=== PATIENT | male | born 1985 | race Caucasian/White ===

== ENCOUNTER 2017-02-18 20:21 | Emergency (ER) | payer BC ==
[2017-02-18 20:26] VITALS: TEMP 98.1; BMI 32.5
--- NOTE | 2017-02-18 20:27 | PDOC ---
Rapid Medical Evaluation Chief Complaint: Pain Time Seen by Provider: 02/18/17 20:25 Medical Evaluation: 02/18/17 20:25 I have performed a brief in-person evaluation of this patient. The patient presents with a chief complaint of: Epigastric Abdominal Pain, Nausea. Pertinent physical exam findings: Epigastric tenderness. I have ordered the following: urinalysis, cbc, cmp, amylase, lipase. EKG. The patient will proceed to the ED for further evaluation. Patient sent to ER from Urgent Care by Ariana CARABALLO.
[2017-02-18 20:53] LABS: BASO % 0.5 % (0-2.0); EOS # 0.1 # (0-4.5); EOS % 0.7 % (0-4.5); LYMPH # 1.2 (8-40); MCH 29.1 pg (25.7-33.7); MCHC 33.7 g/dl (32.0-35.9); MEAN CELL VOLUME 86.3 fl (80-96); MEAN PLT VOLUME 7.5 fl (7.5-11.1); MONO # 0.4 # (3.8-10.2); NEUT # 7.3 # (42.8-82.8); PLATELET COUNT 337 K/MM3 (134-434); RDW 13.7 % (11.9-15.9); WHITE BLOOD COUNT 9.1 K/mm3 (4.0-10.0)
[2017-02-18] MEDS ORDERED: FAMOTIDINE IV 20 MG/12 ML VIAL IVPUSH ONE (21:20)
[2017-02-18] MEDS ORDERED: SODIUM CHLORIDE 1,000 ML IV STA (21:20)
[2017-02-18] MEDS ORDERED: FAMOTIDINE 20 MG/50 ML IVPB 20 MG/50 ML MG IVPB ONE (21:25)
[2017-02-18 21:46] LABS: URINE APPEARANCE CLEAR; URINE BILIRUBIN NEGATIVE (NEGATIVE); URINE BLOOD NEGATIVE (NEGATIVE); URINE COLOR YELLOW; URINE GLUCOSE (UA) NEGATIVE (NEGATIVE); URINE KETONE NEGATIVE (NEGATIVE); URINE LEUK ESTERASE NEGATIVE (NEGATIVE); URINE NITRITE NEGATIVE (NEGATIVE); URINE PROTEIN NEGATIVE (NEGATIVE); URINE UROBILINOGEN NEGATIVE mg/dL (0.2-1.0)
[2017-02-18 21:52] LABS: ALBUMIN 4.3 g/dl (3.4-5.0); AMYLASE 56 U/L (25-115); ANION GAP 7 (8-16); CALCIUM 8.8 mg/dL (8.5-10.1); CO2 28 mmol/L (21-32); CREATININE 1.1 mg/dL (0.7-1.3); GLUCOSE,RANDOM 119 mg/dL (74-106); SGOT/AST 10 U/L (15-37); SGPT/ALT 37 U/L (12-78)
[2017-02-18 21:54] LABS: ALK PHOS 78 U/L (45-117); BILIRUBIN,TOTAL 0.4 mg/dL (0.2-1.0); TOT PROT 7.7 g/dl (6.4-8.2)
[2017-02-18 21:57] LABS: CPK 259 IU/L (39-308); TROPONIN I < 0.02 ng/ml (0.00-0.05)
[2017-02-18 23:28] LABS: URINE LEUK ESTERASE Negative (NEGATIVE)
--- NOTE | 2017-02-19 00:34 | PDOC ---
History of Present Illness - General History Source: Patient Exam Limitations: No Limitations - History of Present Illness Initial Comments: 02/19/17 00:34 Patient is a 31 year old male with no significant past medical history who presents to the ED with complaints of epigastric pain that began 2 days ago. Patient reports waking up 3 days ago with sudden epigastric pain that began suddenly with no signs of subsiding. Patient states abdominal pain is a constant burning pain that began to radiate to the back yesterday afternoon while at home. He reports experiencing x8 episodes of diarrhea yesterday afternoon but denies any episodes since this morning. Patient denies taking any medication for abdominal pain but reports taking imodium for diarrhea this morning. Patient states he has not seen a Dr. in over 15 years. Denies nausea, vomiting. Denies fevers, chills. Denies SOB, Chest pain. Denies numbness, tingles. Denies contact with sick individuals, out of state travel. Denies any other symptoms. Allergies: None Social history: No smoking. Social drinker. No illicit drugs. Surgical history PMD: None <Javad Rahman - Last Filed: 02/19/17 00:34> <Bartolo Peters - Last Filed: 02/19/17 01:54> - General Chief Complaint: Pain, Acute Stated Complaint: STOMACH PAIN Time Seen by Provider: 02/18/17 21:21 Past History <Javad Rahman - Last Filed: 02/19/17 00:34> - Past Medical History COPD: No Other medical history: PATIENT DENIES MEDICAL HX - Suicide/Smoking/Psychosocial Hx Smoking History: Never smoked Hx Alcohol Use: Yes (WEEKENDS) Drug/Substance Use Hx: No <Bartolo Peters - Last Filed: 02/19/17 01:54> - Past Medical History Allergies/Adverse Reactions: Allergies Allergy/AdvReac Type Severity Reaction Status Date / Time No Known Allergies Allergy Verified 02/18/17 20:25 Home Medications: Ambulatory Orders Dicyclomine HCl [Bentyl -] 20 mg PO Q6H #28 tablet 02/19/17 Famotidine [Pepcid -] 20 mg PO BID #14 tablet 02/19/17 Ondansetron [Zofran *Odt*] 8 mg SL TID #21 od.tablet 02/19/17 Review of Systems - Review of Systems Able to Perform ROS?: Yes Comments:: 02/19/17 00:34 GENERAL/CONSTITUTIONAL: No fever or chills. No weakness. HEAD, EYES, EARS, NOSE AND THROAT: No change in vision. No ear pain or discharge. No sore throat. CARDIOVASCULAR: No chest pain or shortness of breath. RESPIRATORY: No cough, wheezing, or hemoptysis. GASTROINTESTINAL: +Epigastric pain. +diarrhea. No nausea, vomiting, constipation. GENITOURINARY: No dysuria, frequency, or change in urination. MUSCULOSKELETAL: No joint or muscle swelling or pain. No neck or back pain. SKIN: No rash NEUROLOGIC: No headache, vertigo, loss of consciousness, or change in strength/ sensation. ENDOCRINE: No increased thirst. No abnormal weight change. HEMATOLOGIC/LYMPHATIC: No anemia, easy bleeding, or history of blood clots. ALLERGIC/IMMUNOLOGIC: No hives or skin allergy. All Other Systems: Reviewed and Negative <aJvad Rahman - Last Filed: 02/19/17 00:34> *Physical Exam - Vital Signs Last Vital Signs Temp Pulse Resp BP Pulse Ox 98.1 F 79 16 147/92 98 02/18/17 20:23 02/18/17 20:23 02/18/17 20:23 02/18/17 20:23 02/18/17 20:23 - Physical Exam Comments: 02/19/17 00:34 GENERAL: Awake, alert, and fully oriented, in no acute distress HEAD: No signs of trauma EYES: PERRLA, EOMI, sclera anicteric, conjunctiva clear ENT: Auricles normal inspection, hearing grossly normal, nares patent, oropharynx clear without exudates. Moist mucosa NECK: Normal ROM, supple, no lymphadenopathy, JVD, or masses LUNGS: Breath sounds equal, clear to auscultation bilaterally. No wheezes, and no crackles HEART: Regular rate and rhythm, normal S1 and S2, no murmurs, rubs or gallops ABDOMEN: +Epigastric tenderness. Soft, normoactive bowel sounds. No guarding, no rebound. No masses EXTREMITIES: Normal range of motion, no edema. No clubbing or cyanosis. No cords, erythema, or tenderness NEUROLOGICAL: Cranial nerves II through XII grossly intact. Normal speech, normal gait SKIN: Warm, Dry, normal turgor, no rashes or lesions noted. <Javad Rahman - Last Filed: 02/19/17 00:34> - Vital Signs Last Vital Signs Temp Pulse Resp BP Pulse Ox 98.1 F 79 16 147/92 98 02/18/17 20:23 02/18/17 20:23 02/18/17 20:23 02/18/17 20:23 02/18/17 20:23 <Bartolo Peters - Last Filed: 02/19/17 01:54> ED Treatment Course - LABORATORY CBC & Chemistry Diagram: 02/18/17 20:35 02/18/17 20:35 - ADDITIONAL ORDERS Additional order review: Laboratory Results 02/18/17 02/18/17 02/18/17 21:39 20:35 20:35 Sodium 138 Potassium 3.9 Chloride 103 Carbon Dioxide 28 Anion Gap 7 L BUN 10 Creatinine 1.1 Creat Clearance w eGFR > 60 Random Glucose 119 H Calcium 8.8 Total Bilirubin 0.4 AST 10 L ALT 37 Alkaline Phosphatase 78 Creatine Kinase 259 Creatine Kinase Index 0.5 CK-MB (CK-2) 1.311 Troponin I < 0.02 Total Protein 7.7 Albumin 4.3 Total Amylase 56 Lipase 126 Urine Color Yellow Urine Appearance Clear Urine pH 6.0 Ur Specific Viola 1.021 Urine Protein Negative Urine Glucose (UA) Negative Urine Ketones Negative Urine Blood Negative Urine Nitrite Negative Urine Bilirubin Negative Urine Urobilinogen Negative Ur Leukocyte Esterase Negative 02/18/17 20:35 RBC 5.41 MCV 86.3 MCHC 33.7 RDW 13.7 MPV 7.5 Neutrophils % 81.0 Lymphocytes % 13.6 Monocytes % 4.2 Eosinophils % 0.7 Basophils % 0.5 - Medications Given in the ED: ED Medications Discontinued Medications Generic Name Dose Route Start Last Admin Trade Name Freq PRN Reason Stop Dose Admin Famotidine 20 mg in 12 mls @ 144 mls/hr 02/18/17 21:20 02/18/17 21:39 Pepcid 20 Mg/12 Ml Push IVPUSH 02/18/17 21:24 144 mls/hr ONCE ONE Administration Sodium Chloride 1,000 mls @ 1,000 mls/hr 02/18/17 21:20 02/18/17 21:39 Normal Saline - IV 02/18/17 22:19 1,000 mls/hr ASDIR STA Administration <Javad Rahman - Last Filed: 02/19/17 00:34> - LABORATORY CBC & Chemistry Diagram: 02/18/17 20:35 02/18/17 20:35 - ADDITIONAL ORDERS Additional order review: Laboratory Results 02/18/17 02/18/17 02/18/17 21:39 20:35 20:35 Sodium 138 Potassium 3.9 Chloride 103 Carbon Dioxide 28 Anion Gap 7 L BUN 10 Creatinine 1.1 Creat Clearance w eGFR > 60 Random Glucose 119 H Calcium 8.8 Total Bilirubin 0.4 AST 10 L ALT 37 Alkaline Phosphatase 78 Creatine Kinase 259 Creatine Kinase Index 0.5 CK-MB (CK-2) 1.311 Troponin I < 0.02 Total Protein 7.7 Albumin 4.3 Total Amylase 56 Lipase 126 Urine Color Yellow Urine Appearance Clear Urine pH 6.0 Ur Specific Viola 1.021 Urine Protein Negative Urine Glucose (UA) Negative Urine Ketones Negative Urine Blood Negative Urine Nitrite Negative Urine Bilirubin Negative Urine Urobilinogen Negative Ur Leukocyte Esterase Negative 02/18/17 20:35 RBC 5.41 MCV 86.3 MCHC 33.7 RDW 13.7 MPV 7.5 Neutrophils % 81.0 Lymphocytes % 13.6 Monocytes % 4.2 Eosinophils % 0.7 Basophils % 0.5 - RADIOLOGY Radiology Studies Ordered: Category Date Time Status ABDOMEN & PELVIS CT WITH CONTR [CT] Stat CT Scan 02/18/17 21:32 Taken - Medications Given in the ED: ED Medications Discontinued Medications Generic Name Dose Route Start Last Admin Trade Name Freq PRN Reason Stop Dose Admin Famotidine 20 mg in 12 mls @ 144 mls/hr 02/18/17 21:20 02/18/17 21:39 Pepcid 20 Mg/12 Ml Push IVPUSH 02/18/17 21:24 144 mls/hr ONCE ONE Administration Sodium Chloride 1,000 mls @ 1,000 mls/hr 02/18/17 21:20 02/18/17 21:39 Normal Saline - IV 02/18/17 22:19 1,000 mls/hr ASDIR STA Administration <Bartolo Peters - Last Filed: 02/19/17 01:54> *DC/Admit/Observation/Transfer - Attestations Scribe Attestion: 02/19/17 00:34 Documentation prepared by Javad Lacey, acting as medical or surgical instrument maker for Bartolo Peters MD/DO. <Javad Rahman - Last Filed: 02/19/17 00:34> - Discharge Dispostion Admit: No - Attestations Physician Attestion: 02/19/17 00:33 I, Dr. Bartolo Peters, attest that this document has been prepared under my direction and personally reviewed by me in its entirety. I further attest, that it accurately reflects all work, treatment, procedures and medical decision -making performed by me. <Bartolo Peters - Last Filed: 02/19/17 01:54> Diagnosis at time of Disposition: Viral gastroenteritis - Discharge Dispostion Disposition: HOME Condition at time of disposition: Good - Prescriptions Prescriptions: Dicyclomine HCl [Bentyl -] 20 mg PO Q6H #28 tablet Famotidine [Pepcid -] 20 mg PO BID #14 tablet Ondansetron [Zofran *Odt*] 8 mg SL TID #21 od.tablet - Referrals Referrals: Rafa Henao MD [Staff Physician] - - Patient Instructions Printed Discharge Instructions: DI for Viral Gastroenteritis -- Adult Additional Instructions: Trung- Sorry that you are ill. Rest, Plenty of Fluids, Water or Gatoraide, Zofran ODT is for nausea, Pepcid is for burning pain, Bentyl is for cramping pain. Follow up in the clinic (Dr. HENAO). Return to us if worse or new symptoms occur. Best- Dr. Bartolo Godoy - Post Discharge Activity Forms/Work/School Notes: Back to Work
[2017-02-19 02:05] VITALS: BP 136/90; PULSE 88
--- NOTE | 2017-02-19 13:49 | EKG ---
Test Reason : Blood Pressure : / mmHG Vent. Rate : 066 BPM Atrial Rate : 066 BPM P-R Int : 124 ms QRS Dur : 096 ms QT Int : 400 ms P-R-T Axes : 039 048 026 degrees QTc Int : 419 ms NORMAL SINUS RHYTHM NORMAL ECG NO PREVIOUS ECGS AVAILABLE Confirmed by SHAHRZAD LAMA MD ([id number]) on 02/19/2017 1:48:45 PM Referred By: Confirmed By:SHAHRZAD LAMA MD
== END 2017-02-19 02:06 | disposition home or self-care (01) ==
LOC: JER 20:21
PROC: 3E033GC Introduction of Other Therapeutic Substance into Peripheral Vein, Percutaneous Approach (ICD-10-PCS; principal; 2017-02-18)
DX: A08.4 Viral intestinal infection, unspecified (principal)
CPT/HCPCS: 36415; 74177-TC; 80053; 81003; 82150; 82550; 82553; 83690; 84484; 85025; 93005; 93010; 99282-25